=== PATIENT | male | born 1990 | race Hispanic/Latino ===

== ENCOUNTER 2022-07-01 06:55 | Day surgery (SDC) | payer BC ==
[2022-06-30 09:22] VITALS: BP 118/78
[2022-07-01] VITALS (13 sets, daily range): BP systolic 121–145; BP diastolic 70–86
[~2022-07-01] VITALS: Ht 182.9 cm; Wt 129.8 kg
[~2022-07-01 06:55] MED LIST: BUPIVACAINE/EPI/PF 0.5% 30ML VIAL IJ ONE; NEOMY SULF/BACITRAC ZN/POLY OINT 30GM TUBE TP ONE
[2022-07-01] MEDS ORDERED: LACTATED RINGERS 1000ML 1,000 ML IV ONE (07:19)
[2022-07-01] MEDS ORDERED: MIDAZOLAM HCL 1 MG/ML 2ML VIAL ONE ×2 (07:23→08:22)
[2022-07-01] MEDS ORDERED: LIDOCAINE PF 100MG/5ML (2%) SYRINGE 5ML ONE ×2 (07:23→08:21)
[2022-07-01] MEDS ORDERED: FENTANYL CITRATE PF 50 MCG/1 ML 2ML VIAL ONE ×2 (07:23→08:22)
[2022-07-01] MEDS ORDERED: PROPOFOL 10 MG/ML 20ML VIAL IV ONE ×2 (07:23→08:22)
[2022-07-01] MEDS ORDERED: CEFAZOLIN SODIUM 2 GM VIAL IVPB PRN (08:00)
[2022-07-01] MEDS ORDERED: DEXAMETHASONE SOD PHOSPHATE 10MG/ML 1ML VIAL ONE (08:03)
[2022-07-01] MEDS ORDERED: ONDANSETRON 4MG INJ ONE ×3 (08:03→11:21)
[2022-07-01] MEDS ORDERED: FAMOTIDINE 20MG VIAL IV ONE (08:07)
[2022-07-01] MEDS ORDERED: OXYTOCIN 10 USP UNITS/ML ONE (08:15)
[2022-07-01] MEDS ORDERED: CEFAZOLIN SODIUM 3 GM VIAL IV ONE (08:46)
[2022-07-01] MEDS ORDERED: CEFAZOLIN SODIUM 1 GM VIAL ONE (09:03)
[2022-07-01] MEDS ORDERED: ACETAMINOPHEN 325 MG TAB ONE (10:05)
[2022-07-01] MEDS ORDERED: ONDANSETRON 4MG TABLET PO SCH (11:30)
[2022-07-01] MEDS ORDERED: ONDANSETRON 4MG INJ IVP ONE (16:00)
== END 2022-07-01 11:00 | disposition home or self-care (01) ==
LOC: DAH 06:55
PROVIDERS: ATTEND Urology
DX: Z30.2 Encounter for sterilization (principal); Z20.822 Contact with and (suspected) exposure to COVID-19; K21.9 Gastro-esophageal reflux disease without esophagitis; E66.9 Obesity, unspecified; Z90.49 Acquired absence of other specified parts of digestive tract
CPT/HCPCS: 87426; 55250; A4663; J0690 ×3; J7120; J3490; J3010; J2001; J2250; J2704; J2405 ×2; A4215; A4223; A4222; A4221; A4600; A4510; J1100; J2590; Q0162